=== PATIENT | male | born 1985 | race Caucasian/White ===

== ENCOUNTER 2019-08-25 09:25 | Emergency (ER) | payer BC ==
[~2019-08-25] VITALS: Ht 177.8 cm; Wt 93.2 kg
[2019-08-25 09:32] VITALS: BP 148/97; PULSE 72; TEMP 98.4
== END 2019-08-25 09:51 | disposition home or self-care (01) ==
LOC: COL.ER 09:25
DX: S63.115A Dislocation of metacarpophalangeal joint of left thumb, initial encounter (principal); W20.8XXA Other cause of strike by thrown, projected or falling object, initial encounter